=== PATIENT | male | born 1975 | race Caucasian/White ===

== ENCOUNTER 2016-06-16 10:14 | Emergency (ER) | payer OTHER ==
--- NOTE | 2016-06-16 12:11 | DIAGNOSTIC IMAGING REPORT ---
PROCEDURE: CT ABDOMEN/PELVIS W/O CONTRAST INDICATION: Left flank pain, initial encounter TECHNIQUE: Noncontrast axial images were obtained of the entire abdomen and pelvis with sagittal and coronal reformations. COMPARISON: CT abdomen/pelvis 10/07/2012 FINDINGS: ABDOMEN: There are three punctate nonobstructing left renal calculi. No additional urinary calculi. Lung base are clear. Heart size is normal. Liver, gallbladder, pancreas, spleen (splenules and calcified granulomas), adrenal glands and abdominal aorta are normal. Nonspecific bowel gas pattern. PELVIS: Normal appendix. No pelvic mass or inflammatory changes. L5 laminectomy with L5-S1 surgical fusion with pedicle screws and disc spacer. IMPRESSION: 1. Three punctate nonobstructing left renal calculi 2. L5 laminectomy and L5-S1 surgical fusion 3. Results discussed with Dr. Wen All CT scans at this facility use dose modulation, iterative reconstruction, and/or weight-based dosing when appropriate to reduce radiation dose to as low as reasonably achievable.
--- NOTE | 2016-06-16 13:57 | ED NURSING NOTES ---
Clinical Report - Nurses [facility] [address] [place] [address] 06/16/2016 10:16 Patient: BEAR FERNANDEZ TRIAGE Triage time 10:24 Jun 16 2016. Acuity: LEVEL 3. Chief Complaint: ABDOMINAL PAIN. --10:26 Tani Desir R.N. 10:22 06/16/16. BP: 111/66. HR: 74. RR: 18. O2 saturation: 98%. Temp: 98.3 F. --10:26 Tani Desir R.N. Weight: 83.9 kg stated. Height/Length: 72 inches Per Patient. BMI: 25.1. --10:25 Tani Desir R.N. Medications Naproxen Oral. Zoloft Oral (Tablet 50 mg) 1 tablet, daily. --10:25 Tani Desir R.N. Allergies Hydrocodone.(nausea) Tramadol. (seizure) --10:25 Tani Desir R.N. History Arrived by private vehicle. ( Pt reports L flank pain that started multiple says ago pain has progressively gotten worse. Painful urination. hx of kidney stone). Onset. (3 days). SOCIAL HX: Current every day heavy tobacco smoker. History of drug use: marijuana. No alcohol use. --10:26 Tani Desir R.N. Interventions ID and allergy band on patient. To treatment room. --10:26 Tani Desir R.N. PHYSICAL ASSESSMENT ( Last BM yesterday). GENERAL / NEURO / PSYCH: Alert. Oriented X 4. Appears in distress. RESPIRATORY: Respirations not labored. Breath sounds within normal limits. CVS: Capillary refill less than 2 seconds. GI / : The patient has had nausea. Emesis noted. Abdominal tenderness (L flank). Bowel sounds within normal limits. SKIN: Skin is warm and dry. --10:45 Tani Desir R.N. NURSING PROGRESS NOTES 10:33 06/16/2016 Site #1 started via IV in the right antecubital space with an 18g angiocath, with aseptic technique and good blood return; one attempt. Blood drawn: rainbow set. Labeled in the presence of the patient and sent to the lab. Saline lock flushed with saline. --10:43 Tani Desir R.N. 10:43 06/16/2016 Started bag #1 1000 mL IV Fluids IV NS (Saline); bolus of 1000 mL wide open via site #1. Allergies verified and confirmed 5 rights. IV patency established. IV site checked: no pain, redness, or swelling. IV flushed thoroughly pre- and post-medication administration. Completed per protocol. --10:43 Tani Desir R.N. 10:43 06/16/2016 Zofran (Ondansetron HCl) IVP 4 mg given over 2 minute(s) via site #1. Allergies verified and confirmed 5 rights. IV patency established. IV site checked: no pain, redness, or swelling. IV flushed thoroughly pre- and post-medication administration. IVP given by RN. --10:43 Tani Desir R.N. 10:44 06/16/2016 Toradol IVP 30 mg given over 2 minute(s) via site #1. Allergies verified and confirmed 5 rights. IV patency established. IV site checked: no pain, redness, or swelling. IV flushed thoroughly pre- and post-medication administration. IVP given by RN. --10:44 Tani Desir R.N. Pulse oximeter placed on patient. Patient gowned. Two patient identifiers checked. Call light placed in reach. Side rails up x 1. Bed placed in lowest position. --10:46 Tani Desir R.N. 10:59 06/16/16. BP: 85/60. O2 saturation: 100%. --10:59 Tani Desir R.N. ( Pt in bed no symptoms of hypotension). --10:59 Tani Desir R.N. 11:32 06/16/2016 Demerol (Meperidine HCl) IVP 50 mg given over 2 minute(s) via site #1. Allergies verified and confirmed 5 rights. IV patency established. IV site checked: no pain, redness, or swelling. IV flushed thoroughly pre- and post-medication administration. IVP given by RN. --11:32 Tani Desir R.N. 11:40 06/16/16. BP: 98/62. HR: 79. O2 saturation: 99%. --11:40 Tani Desir R.N. ( Pt to CT). --11:40 Tani Desir R.N. ( Pt returned from CT states pain is still same. Given urine sample cup and informed of need for sample). --12:17 Tani Desir R.N. 12:33 06/16/2016 Demerol (Meperidine HCl) IVP 50 mg given over 2 minute(s) via site #1. Allergies verified and confirmed 5 rights. IV patency established. IV site checked: no pain, redness, or swelling. IV flushed thoroughly pre- and post-medication administration. IVP given by RN. --12:34 Tani Desir R.N. 12:46 06/16/16. BP: 103/54. O2 saturation: 99%. --12:47 Tani Desir R.N. ( Pt in bed pain reduced to 3/10). --12:47 Tani Desir R.N. 13:55 06/16/2016 Started 1 gm of Ceftriaxone IVPB in bag #1 50 mL; at 200 mL/hr over 30 minute(s) via site #1; Allergies verified and confirmed 5 rights. IV patency established. IV site checked: no pain, redness, or swelling. IV flushed thoroughly pre- and post-medication administration. Completed per protocol. --13:55 Tani Desir R.N. 14:19 06/16/2016 Ceftriaxone IVPB Discontinued: bag #1 infused upon discharge. Total amount infused: 50 mL. IV patency established. IV site checked: no pain, redness, or swelling. IV flushed thoroughly. --14:19 Tani Desir R.N. DISPOSITION / DISCHARGE 14:00 06/16/16. BP: 107/56. HR: 51. RR: 18. O2 saturation: 100%. Temp: 98.1 F. Pain level now 4/10. --14:00 Tani Desir R.N. Departure time: 1425. Reviewed medication(s) side effects information. The patient was discharged by the physician. He was discharged home and accompanied by strategic communications manager. He left the Emergency Department ambulatory and via private vehicle. Final Inspector And Tester driving. ( Pt ambulated on discharge steady on his feet. Pt requests stronger pain medication, md aware no change in prescription, pt displeased by this. Verbalized understanding of follow up care and medication admin). --14:30 Tani Desir R.N. 18:06 06/16/2016 Site #1 removed upon discharge. Bandage applied. --18:06 Tani Desir R.N. Locked/Released at 06/16/2016 18:06 by Tani Desir R.N.
--- NOTE | 2016-06-16 13:57 | ED ORDER SUMMARY ---
..... Patient: BEAR FERNANDEZ OrderSheet [facility] VisitID: [id number] [address] [place] [address] 40y, M Registration Date/Time: 06/16/2016 ORDER SHEET Weight: 83.9 kg (stated) Allergies: Hydrocodone, Tramadol GENERAL ORDERS: CT Abd/Pel wo Cont Urgent (10:36 06/16/2016 Chencho Tellez) (Ack 10:37 LNations ER Tech1) (13:25 NHouse ER Tech1) CBC w Diff Urgent (10:36 06/16/2016 Chencho Tellez) (Ack 10:37 LNations ER Tech1) (13:25 NHouse ER Tech1) CMP Urgent (10:36 06/16/2016 Chencho Tellez) (Ack 10:37 LNations ER Tech1) (13:25 NHouse ER Tech1) UA-Culture if indicated Urgent (10:36 06/16/2016 Chencho Tellez) (Ack 10:37 LNations ER Tech1) (13:25 NHouse ER Tech1) MEDICATION ORDERS: IV FLUIDS: IV NS : initial bolus none -, then 1000 mL/hr for X1 (NOW) (10:35 06/16/2016 Chencho Tellez) (10:43 Freddy R.N.) Toradol IV 30 mg (NOW) (10:35 06/16/2016 Chencho Tellez) (10:44 DBeyten R.N.) Zofran IV 4 mg (NOW) (10:36 06/16/2016 Chencho Tellez) (10:43 DBeyer R.N.) Demerol IV 50 mg (HIGH ALERT MEDICATION, NOW) (11:28 06/16/2016 Chencho Tellez) (11:32 DBeyten R.N.) Demerol IV 50 mg (HIGH ALERT MEDICATION, NOW) (12:28 06/16/2016 Chencho Tellez) (12:34 DBeyer R.N.) Ceftriaxone IV 1 gm/50mL (NOW) (13:50 06/16/2016 Chencho Tellez) (13:55 DBeyer R.N.) ORDER SHEET NOTES: [Electronically signed by Nathaniel Wen Dr. (14:00 06/16/2016)] [Electronically signed by Tani Desir R.N. (18:06 06/16/2016)] [Electronically locked/signed by Tani Desir R.N. (18:06 06/16/2016)]
--- NOTE | 2016-06-16 13:57 | ED ORDER SUMMARY ---
..... Patient: BEAR FERNANDEZ OrderSheet [facility] VisitID: [id number] [address] [place] [address] 40y, M Registration Date/Time: 06/16/2016 ORDER SHEET Weight: 83.9 kg (stated) Allergies: Hydrocodone, Tramadol GENERAL ORDERS: CT Abd/Pel wo Cont Urgent (10:36 06/16/2016 Chencho Tellez) (Ack 10:37 LNations ER Tech1) (13:25 NHouse ER Tech1) CBC w Diff Urgent (10:36 06/16/2016 Chencho Tellez) (Ack 10:37 LNations ER Tech1) (13:25 NHouse ER Tech1) CMP Urgent (10:36 06/16/2016 Chencho Tellez) (Ack 10:37 LNations ER Tech1) (13:25 NHouse ER Tech1) UA-Culture if indicated Urgent (10:36 06/16/2016 Chencho Tellez) (Ack 10:37 LNations ER Tech1) (13:25 NHouse ER Tech1) MEDICATION ORDERS: IV FLUIDS: IV NS : initial bolus none -, then 1000 mL/hr for X1 (NOW) (10:35 06/16/2016 Chencho Tellez) (10:43 Freddy R.N.) Toradol IV 30 mg (NOW) (10:35 06/16/2016 Chencho Tellez) (10:44 DBeyten R.N.) Zofran IV 4 mg (NOW) (10:36 06/16/2016 Chencho Tellez) (10:43 DBeyer R.N.) Demerol IV 50 mg (HIGH ALERT MEDICATION, NOW) (11:28 06/16/2016 Chencho Tellez) (11:32 DBeyten R.N.) Demerol IV 50 mg (HIGH ALERT MEDICATION, NOW) (12:28 06/16/2016 Chencho Tellez) (12:34 DBeyer R.N.) Ceftriaxone IV 1 gm/50mL (NOW) (13:50 06/16/2016 Chencho Tellez) (13:55 DBeyer R.N.) ORDER SHEET NOTES: [Electronically signed by Nathaniel Wen Dr. (14:00 06/16/2016)] [Electronically signed by Tani Desir R.N. (18:06 06/16/2016)] [Electronically locked/signed by Tani Desir R.N. (18:06 06/16/2016)]
--- NOTE | 2016-06-16 13:57 | ED CLINICAL REPORT ---
Clinical Report - Physicians/Mid Levels [facility] [address] [place] [address] 06/16/2016 10:16 Patient: BEAR FERNANDEZ Time Seen: 10:19; initial patient contact. Arrived- By private vehicle. Historian- patient. HISTORY OF PRESENT ILLNESS Chief Complaint: ABDOMINAL PAIN and FLANK PAIN. At its maximum, severity described as moderate. When seen in the E.D., severity described as moderate. Modifying factors. Not worsened by anything. Not relieved by anything. It is described as cramping and it is described as located in the left lower quadrant and left pelvis and the left flank and radiating to the groin. This started about 2 days ago and is still present (persistent). The patient has had nausea. No loss of appetite, vomiting or diarrhea. Similar symptoms previously: Twice. Recent medical care: Not recently seen/assessed. REVIEW OF SYSTEMS No difficulty with urination, pain with urination or urinary frequency. He has had back pain. All systems otherwise negative, except as recorded above. PAST HISTORY Ureterolithiasis Surgical : Ureteral stenting. SOCIAL HISTORY Current every day smoker. History of drug use: marijuana. No alcohol use. ADDITIONAL NOTES The nursing notes have been reviewed with agreement regarding the chief complaint, PMH and patient medications and allergies. PHYSICAL EXAM Vital Signs: 06/16/2016 10:22 BP: 111/66. HR: 74. RR: 18. O2 saturation: 98%. Temp: 98.3 F. Have been reviewed as normal. Appearance: Alert. Oriented X3. Appears to be in pain. Eyes: Eyes normal inspection. ENT: Dry mucous membranes present. CVS: Normal heart rate and rhythm. Heart sounds normal. Respiratory: No respiratory distress. Breath sounds normal. Abdomen: Soft. Moderate tenderness in the left side of the abdomen with guarding present. No rebound tenderness. Back: Moderate CVA tenderness on the left. Skin: Normal skin color. No rash. Neuro: Oriented X 3. LABS, X-RAYS, AND EKG Abdominal CT: 1. Three punctate nonobstructing left renal calculi 2. L5 laminectomy and L5-S1 surgical fusion. Study type: renal stone evaluation. Abdominal CT performed without contrast. The study was independently viewed by me, interpreted by the radiologist and discussed with the radiologist. Prior studies were not available for comparison. Interpretation time: 12:26. Laboratory Tests: CBC w Diff: (VITA: 06/16/2016 10:30) ( MsgRcvd 06/16/2016 10:41) Final results Test Result Flag Units (Reference) WHITE BLOOD COUNT 10.4 K/uL (4.5-11.5) RED BLOOD COUNT 4.77 M/uL (4.50-5.90) HEMOGLOBIN 15.8 gm/dL (13.5-17.5) HEMATOCRIT 47.7 % (41.0-53.0) MEAN CELL VOLUME 100 fL (80-100) MEAN CORPUSCULAR HGB 33 pg (26-34) MEAN CORPUSCULAR HGB CONC 33 g/dL (31-37) RED CELL DISTRIBUTION WIDTH 13.5 % (11.6-14.8) PLATELET COUNT 254 K/uL (150-400) LYMPH % 25.4 % (25-40) MONO % 4.8 % (3-14) GRANULOCYTE % 69.8 CMP: (VITA: 06/16/2016 10:30) ( MsgRcvd 06/16/2016 11:01) Final results Test Result Flag Units (Reference) GLUCOSE 124 H mg/dL (70-110) BUN 12 mg/dL (7-18) CREATININE 0.9 mg/dL (0.6-1.3) Estimated GFR >60 mL/min Estimated GFR- >60 mL/min Note: Persistent reduction over 3 months in eGFR<60 mL/min/1.73 m2 defines CKD. Patients with eGFR values>=60 mL/min/1.73 m2 may also have CKD if evidence ofpersistent proteinuria. Additional information may be foundat www.kidney.org. SODIUM 145 mmol/L (136-145) POTASSIUM 4.4 mmol/L (3.5-5.1) CHLORIDE 107 mmol/L (98-107) CARBON DIOXIDE 29 mmol/L (21-32) CALCIUM 9.4 mg/dL (8.5-10.1) TOTAL PROTEIN 7.7 g/dL (6.4-8.2) ALBUMIN 4.4 g/dL (3.3-5.0) BILIRUBIN, TOTAL 0.6 mg/dL (0.0-1.0) ALKALINE PHOSPHATASE 99 U/L (46-116) AST (SGOT) 12 L U/L (15-37) ALT (SGPT) 26 U/L (12-78) . PROGRESS AND PROCEDURES Course of Care: 06/16/2016 12:46 BP: 103/54. O2 saturation: 99%. Vital Signs: have been reviewed. Hypotensive. Oxygen saturation normal. Disposition: Discharged home in good and improved condition. Condition: good. CLINICAL IMPRESSION Acute urinary tract infection with cystitis. No pyelonephritis or hematuria. INSTRUCTIONS Do not work tomorrow. Your Current Medications: CONTINUE TAKING THE FOLLOWING MEDICATIONS: Naproxen Oral. Zoloft Oral : Tablet 50 mg, 1 tablet daily. Prescription Medications: Levaquin 500 mg: take 1 tab orally every day for 7 days. No refills. Substitution is permissible. Diclofenac 50 mg tablets: take 1 tablet orally every 6 hours as needed for pain. Dispense fifteen (15). No refill. Follow-up: Follow up with your doctor in about two days. Call for an appointment. Screening today revealed the patient's blood pressure to be in the normal range. (Electronically signed by Nathaniel Wen Dr. 06/16/2016 14:00)
--- NOTE | 2016-06-16 18:06 | ED MED RECONCILIATION SUMMARY ---
Patient: BEAR FERNANDEZ Medication Reconciliation Report [facility] VisitID: [id number] [address] [place] [address] 40y, M Registration Date/Time: 06/16/2016 Weight: 83.9 kg Height/Length: 72 in. BMI: 25.1 ALLERGIES: Hydrocodone, Tramadol The patient's Home Medications are listed below: CONTINUE TAKING THE FOLLOWING MEDICATIONS: Naproxen Oral Zoloft Oral (50 mg) 1 tablet, daily The source(s) of the original Home Medication information: Not obtained. The following Medications were given to the patient in the Emergency Department: IV NS IV Fluids bolus 1000 mL wide open, administered: 06/16/2016 10:43:00 AM Zofran [IVP] IVP 4 mg, administered: 06/16/2016 10:43:00 AM Toradol [IVP] IVP 30 mg, administered: 06/16/2016 10:44:00 AM Demerol [IVP] IVP 50 mg, administered: 06/16/2016 11:32:00 AM Demerol [IVP] IVP 50 mg, administered: 06/16/2016 12:33:00 PM Ceftriaxone [IVPB] IVPB bolus 0, then 1 gm 200 mL/hr, administered: 06/16/2016 1:55:00 PM The following Medications were prescribed to the patient: Levaquin 500 mg: take 1 tab orally every day for 7 days. No refills. Substitution is permissible. -- Nathaniel Wen Dr. Diclofenac 50 mg tablets: take 1 tablet orally every 6 hours as needed for pain. Dispense fifteen (15). No refill. -- Nathaniel Wen Dr.
--- NOTE | 2016-06-16 18:06 | ED MAR SUMMARY ---
..... Medication Administration Record [facility] [address] [place] [address] Patient: BEAR FERNANDEZ Visit ID: [id number] 40y, M Weight: 83.9 kg Height/Length: 72 in BMI: 25.1 ALLERGIES: Hydrocodone, Tramadol Given 10:43 06/16/2016 Tani Desir R.N. Medication Administered: ZOFRAN [IVP] (ONDANSETRON HCL), Dose: 4 mg IVP over 2 minute(s), Site: #1 right AC. Medication Ordered: Zofran IV 4 mg (NOW). Start 10:43 06/16/2016 Tani Desir R.N. Medication Administered: IV NS (SALINE), Dose: IV Fluids, Bolus: 1000 mL wide open, Dispensed: 1000 mL bag, Site: #1 right AC. Medication Ordered: IV NS : initial bolus none -, then 1000 mL/hr for X1 (NOW). Given 10:44 06/16/2016 Tani Desir R.N. Medication Administered: TORADOL [IVP], Dose: 30 mg IVP over 2 minute(s), Site: #1 right AC. Medication Ordered: Toradol IV 30 mg (NOW). Given 11:32 06/16/2016 Tani Desir R.N. Medication Administered: DEMEROL [IVP] (MEPERIDINE HCL), Dose: 50 mg IVP over 2 minute(s), Site: #1 right AC. Medication Ordered: Demerol IV 50 mg (HIGH ALERT MEDICATION, NOW). Given 12:33 06/16/2016 Tani Desir R.NErika Medication Administered: DEMEROL [IVP] (MEPERIDINE HCL), Dose: 50 mg IVP over 2 minute(s), Site: #1 right AC. Medication Ordered: Demerol IV 50 mg (HIGH ALERT MEDICATION, NOW). Start 13:55 06/16/2016 Tani Desir R.N., Stop 14:19 06/16/2016 Tani Desir R.N. Medication Administered: CEFTRIAXONE [IVPB], Dose: 1 gm IVPB over 30 minute(s), Rate: 200 mL/hr, Dispensed: 50 mL bag, Site: #1 right AC. Medication Ordered: Ceftriaxone IV 1 gm/50mL (NOW).
--- NOTE | 2016-06-16 18:06 | ED MAR SUMMARY ---
..... Medication Administration Record [facility] [address] [place] [address] Patient: BEAR FERNANDEZ Visit ID: [id number] 40y, M Weight: 83.9 kg Height/Length: 72 in BMI: 25.1 ALLERGIES: Hydrocodone, Tramadol Given 10:43 06/16/2016 Tani Desir R.N. Medication Administered: ZOFRAN [IVP] (ONDANSETRON HCL), Dose: 4 mg IVP over 2 minute(s), Site: #1 right AC. Medication Ordered: Zofran IV 4 mg (NOW). Start 10:43 06/16/2016 Tani Desir R.N. Medication Administered: IV NS (SALINE), Dose: IV Fluids, Bolus: 1000 mL wide open, Dispensed: 1000 mL bag, Site: #1 right AC. Medication Ordered: IV NS : initial bolus none -, then 1000 mL/hr for X1 (NOW). Given 10:44 06/16/2016 Tani Desir R.N. Medication Administered: TORADOL [IVP], Dose: 30 mg IVP over 2 minute(s), Site: #1 right AC. Medication Ordered: Toradol IV 30 mg (NOW). Given 11:32 06/16/2016 Tani Desir R.N. Medication Administered: DEMEROL [IVP] (MEPERIDINE HCL), Dose: 50 mg IVP over 2 minute(s), Site: #1 right AC. Medication Ordered: Demerol IV 50 mg (HIGH ALERT MEDICATION, NOW). Given 12:33 06/16/2016 Tani Desir R.NErika Medication Administered: DEMEROL [IVP] (MEPERIDINE HCL), Dose: 50 mg IVP over 2 minute(s), Site: #1 right AC. Medication Ordered: Demerol IV 50 mg (HIGH ALERT MEDICATION, NOW). Start 13:55 06/16/2016 Tani Desir R.N., Stop 14:19 06/16/2016 Tani Desir R.N. Medication Administered: CEFTRIAXONE [IVPB], Dose: 1 gm IVPB over 30 minute(s), Rate: 200 mL/hr, Dispensed: 50 mL bag, Site: #1 right AC. Medication Ordered: Ceftriaxone IV 1 gm/50mL (NOW).
--- NOTE | 2016-06-16 18:06 | ED MED RECONCILIATION SUMMARY ---
Patient: BEAR FERNANDEZ Medication Reconciliation Report [facility] VisitID: [id number] [address] [place] [address] 40y, M Registration Date/Time: 06/16/2016 Weight: 83.9 kg Height/Length: 72 in. BMI: 25.1 ALLERGIES: Hydrocodone, Tramadol The patient's Home Medications are listed below: CONTINUE TAKING THE FOLLOWING MEDICATIONS: Naproxen Oral Zoloft Oral (50 mg) 1 tablet, daily The source(s) of the original Home Medication information: Not obtained. The following Medications were given to the patient in the Emergency Department: IV NS IV Fluids bolus 1000 mL wide open, administered: 06/16/2016 10:43:00 AM Zofran [IVP] IVP 4 mg, administered: 06/16/2016 10:43:00 AM Toradol [IVP] IVP 30 mg, administered: 06/16/2016 10:44:00 AM Demerol [IVP] IVP 50 mg, administered: 06/16/2016 11:32:00 AM Demerol [IVP] IVP 50 mg, administered: 06/16/2016 12:33:00 PM Ceftriaxone [IVPB] IVPB bolus 0, then 1 gm 200 mL/hr, administered: 06/16/2016 1:55:00 PM The following Medications were prescribed to the patient: Levaquin 500 mg: take 1 tab orally every day for 7 days. No refills. Substitution is permissible. -- Nathaniel Wen Dr. Diclofenac 50 mg tablets: take 1 tablet orally every 6 hours as needed for pain. Dispense fifteen (15). No refill. -- Nathaniel Wen Dr.
--- NOTE | 2016-06-16 18:06 | ED DISCHARGE INSTRUCTIONS ---
Patient: BEAR FERNANDEZ General Instructions [facility] VisitID: [id number] [place] [address] 40y, M Registration Date/Time: 06/16/2016 Acute urinary tract infection with cystitis. No pyelonephritis or hematuria. INSTRUCTIONS Do not work tomorrow. Your Current Medications: CONTINUE TAKING THE FOLLOWING MEDICATIONS: Naproxen Oral. Zoloft Oral : Tablet 50 mg, 1 tablet daily. Prescription Medications: Levaquin 500 mg: take 1 tab orally every day for 7 days. No refills. Substitution is permissible. Diclofenac 50 mg tablets: take 1 tablet orally every 6 hours as needed for pain. Dispense fifteen (15). No refill. Follow-up: Follow up with your doctor in about two days. Call for an appointment. Screening today revealed the patient's blood pressure to be in the normal range. ADDITIONAL INFORMATION Bladder Infection,Male (Adult) A bladder infection ("cystitis" or "UTI") usually causes a constant urge to urinate, and a burning when passing urine. Urine may be cloudy, smelly or dark. There may be also be pain in the lower abdomen. Cystitis in males is not common. It may be caused by a partial blockage in the urinary system that keeps the bladder from emptying completely. This is most often related to an enlarged prostate gland. Home Care: Drink lots of fluids (at least 6-8 glasses a day). This will flush the bacteria out of your bladder. Avoid sexual intercourse until your symptoms are gone. Avoid caffeine, alcohol, and spicy foods. They could irritate the bladder. A bladder infection is treated with antibiotics. You may also be given Pyridium (generic - phenazopyridine) to reduce burning with urination. This will cause urine to become a bright orange color, which can stain clothing. Follow Up with your doctor or this facility if ALL symptoms have not cleared within five days. It is important to keep your follow up appointment to discuss with your doctor the need for further tests of the urinary tract. Get Prompt Medical Attention if any of the following occur: Fever of 100.4F (38C) or higher, or as directed by your healthcare provider No improvement by the third day of treatment Increasing back or abdominal pain Repeated vomiting; unable to keep medicine down Weakness, dizziness or fainting Levofloxacin Oral tablet What is this medicine? LEVOFLOXACIN (reba iglesias MARGARET dottie ann) is a quinolone antibiotic. It is used to treat certain kinds of bacterial infections. It will not work for colds, flu, or other viral infections. How should I use this medicine? Take this medicine by mouth with a full glass of water. Follow the directions on the prescription label. This medicine can be taken with or without food. Take your medicine at regular intervals. Do not take your medicine more often than directed. Do not skip doses or stop your medicine early even if you feel better. Do not stop taking except on your doctor's advice. A special MedGuide will be given to you by the pharmacist with each prescription and refill. Be sure to read this information carefully each time. Talk to your horse show manager regarding the use of this medicine in children. While this drug may be prescribed for children as young as 6 months for selected conditions, precautions do apply. What side effects may I notice from receiving this medicine? Side effects that you should report to your doctor or health floor care specialist as soon as possible: -allergic reactions like skin rash or hives, swelling of the face, lips, or tongue -changes in vision -confusion, nightmares or hallucinations -difficulty breathing -irregular heartbeat, chest pain -joint, muscle or tendon pain -pain or difficulty passing urine -persistent headache with or without blurred vision -redness, blistering, peeling or loosening of the skin, including inside the mouth -seizures -unusual pain, numbness, tingling, or weakness -vaginal irritation, discharge Side effects that usually do not require medical attention (report to your doctor or health floor care specialist if they continue or are bothersome): -diarrhea -dry mouth -headache -stomach upset, nausea -trouble sleeping What may interact with this medicine? Do not take this medicine with any of the following medications: - arsenic trioxide - chloroquine - droperidol - medicines for irregular heart rhythm like amiodarone, disopyramide, dofetilide, flecainide, quinidine, procainamide, sotalol - some medicines for depression or mental problems like phenothiazines, pimozide, and ziprasidone This medicine may also interact with the following medications: - amoxapine -antacids - cisapride - dairy products - didanosine (ddI) buffered tablets or powder - haloperidol - multivitamins -NSAIDS, medicines for pain and inflammation, like ibuprofen or naproxen - retinoid products like tretinoin or isotretinoin - risperidone - some other antibiotics like clarithromycin or erythromycin - sucralfate - theophylline - warfarin What if I miss a dose? If you miss a dose, take it as soon as you remember. If it is almost time for your next dose, take only that dose. Do not take double or extra doses. Where should I keep my medicine? Keep out of the reach of children. Store at room temperature between 15 and 30 degrees C (59 and 86 degrees F). Keep in a tightly closed container. Throw away any unused medicine after the expiration date. What should I tell my health care provider before I take this medicine? They need to know if you have any of these conditions: cerebral disease irregular heartbeat kidney disease seizure disorder an unusual or allergic reaction to levofloxacin, other antibiotics or medicines, foods, dyes, or preservatives or trying to get breast-feeding What should I watch for while using this medicine? Tell your doctor or health floor care specialist if your symptoms do not improve or if they get worse. Drink several glasses of water a day and cut down on drinks that contain caffeine. You must not get dehydrated while taking this medicine. You may get drowsy or dizzy. Do not drive, use machinery, or do anything that needs mental alertness until you know how this medicine affects you. Do not sit or stand up quickly, especially if you are an older patient. This reduces the risk of dizzy or fainting spells. This medicine can make you more sensitive to the sun. Keep out of the sun. If you cannot avoid being in the sun, wear protective clothing and use a sunscreen. Do not use sun lamps or tanning beds/booths. Contact your doctor if you get a sunburn. If you are a diabetic monitor your blood glucose carefully. If you get an unusual reading stop taking this medicine and call your doctor right away. Do not treat diarrhea with [id number] products. Contact your doctor if you have diarrhea that lasts more than 2 days or if the diarrhea is severe and watery. Avoid antacids, calcium, iron, and zinc products for 2 hours before and 2 hours after taking a dose of this medicine. You have been given the following additional information: Bladder Infection, Male (Adult) Levofloxacin Oral tablet Do not work tomorrow. (Electronically signed by Nathaniel Wen Dr. 06/16/2016 14:00)
--- NOTE | 2016-06-16 18:06 | ED DISCHARGE INSTRUCTIONS ---
Patient: BEAR FERNANDEZ General Instructions [facility] VisitID: [id number] [place] [address] 40y, M Registration Date/Time: 06/16/2016 Acute urinary tract infection with cystitis. No pyelonephritis or hematuria. INSTRUCTIONS Do not work tomorrow. Your Current Medications: CONTINUE TAKING THE FOLLOWING MEDICATIONS: Naproxen Oral. Zoloft Oral : Tablet 50 mg, 1 tablet daily. Prescription Medications: Levaquin 500 mg: take 1 tab orally every day for 7 days. No refills. Substitution is permissible. Diclofenac 50 mg tablets: take 1 tablet orally every 6 hours as needed for pain. Dispense fifteen (15). No refill. Follow-up: Follow up with your doctor in about two days. Call for an appointment. Screening today revealed the patient's blood pressure to be in the normal range. ADDITIONAL INFORMATION Bladder Infection,Male (Adult) A bladder infection ("cystitis" or "UTI") usually causes a constant urge to urinate, and a burning when passing urine. Urine may be cloudy, smelly or dark. There may be also be pain in the lower abdomen. Cystitis in males is not common. It may be caused by a partial blockage in the urinary system that keeps the bladder from emptying completely. This is most often related to an enlarged prostate gland. Home Care: Drink lots of fluids (at least 6-8 glasses a day). This will flush the bacteria out of your bladder. Avoid sexual intercourse until your symptoms are gone. Avoid caffeine, alcohol, and spicy foods. They could irritate the bladder. A bladder infection is treated with antibiotics. You may also be given Pyridium (generic - phenazopyridine) to reduce burning with urination. This will cause urine to become a bright orange color, which can stain clothing. Follow Up with your doctor or this facility if ALL symptoms have not cleared within five days. It is important to keep your follow up appointment to discuss with your doctor the need for further tests of the urinary tract. Get Prompt Medical Attention if any of the following occur: Fever of 100.4F (38C) or higher, or as directed by your healthcare provider No improvement by the third day of treatment Increasing back or abdominal pain Repeated vomiting; unable to keep medicine down Weakness, dizziness or fainting Levofloxacin Oral tablet What is this medicine? LEVOFLOXACIN (reba iglesias MARGARET dottie ann) is a quinolone antibiotic. It is used to treat certain kinds of bacterial infections. It will not work for colds, flu, or other viral infections. How should I use this medicine? Take this medicine by mouth with a full glass of water. Follow the directions on the prescription label. This medicine can be taken with or without food. Take your medicine at regular intervals. Do not take your medicine more often than directed. Do not skip doses or stop your medicine early even if you feel better. Do not stop taking except on your doctor's advice. A special MedGuide will be given to you by the pharmacist with each prescription and refill. Be sure to read this information carefully each time. Talk to your theatrical dresser regarding the use of this medicine in children. While this drug may be prescribed for children as young as 6 months for selected conditions, precautions do apply. What side effects may I notice from receiving this medicine? Side effects that you should report to your doctor or health career services officer as soon as possible: -allergic reactions like skin rash or hives, swelling of the face, lips, or tongue -changes in vision -confusion, nightmares or hallucinations -difficulty breathing -irregular heartbeat, chest pain -joint, muscle or tendon pain -pain or difficulty passing urine -persistent headache with or without blurred vision -redness, blistering, peeling or loosening of the skin, including inside the mouth -seizures -unusual pain, numbness, tingling, or weakness -vaginal irritation, discharge Side effects that usually do not require medical attention (report to your doctor or health career services officer if they continue or are bothersome): -diarrhea -dry mouth -headache -stomach upset, nausea -trouble sleeping What may interact with this medicine? Do not take this medicine with any of the following medications: - arsenic trioxide - chloroquine - droperidol - medicines for irregular heart rhythm like amiodarone, disopyramide, dofetilide, flecainide, quinidine, procainamide, sotalol - some medicines for depression or mental problems like phenothiazines, pimozide, and ziprasidone This medicine may also interact with the following medications: - amoxapine -antacids - cisapride - dairy products - didanosine (ddI) buffered tablets or powder - haloperidol - multivitamins -NSAIDS, medicines for pain and inflammation, like ibuprofen or naproxen - retinoid products like tretinoin or isotretinoin - risperidone - some other antibiotics like clarithromycin or erythromycin - sucralfate - theophylline - warfarin What if I miss a dose? If you miss a dose, take it as soon as you remember. If it is almost time for your next dose, take only that dose. Do not take double or extra doses. Where should I keep my medicine? Keep out of the reach of children. Store at room temperature between 15 and 30 degrees C (59 and 86 degrees F). Keep in a tightly closed container. Throw away any unused medicine after the expiration date. What should I tell my health care provider before I take this medicine? They need to know if you have any of these conditions: cerebral disease irregular heartbeat kidney disease seizure disorder an unusual or allergic reaction to levofloxacin, other antibiotics or medicines, foods, dyes, or preservatives or trying to get breast-feeding What should I watch for while using this medicine? Tell your doctor or health career services officer if your symptoms do not improve or if they get worse. Drink several glasses of water a day and cut down on drinks that contain caffeine. You must not get dehydrated while taking this medicine. You may get drowsy or dizzy. Do not drive, use machinery, or do anything that needs mental alertness until you know how this medicine affects you. Do not sit or stand up quickly, especially if you are an older patient. This reduces the risk of dizzy or fainting spells. This medicine can make you more sensitive to the sun. Keep out of the sun. If you cannot avoid being in the sun, wear protective clothing and use a sunscreen. Do not use sun lamps or tanning beds/booths. Contact your doctor if you get a sunburn. If you are a diabetic monitor your blood glucose carefully. If you get an unusual reading stop taking this medicine and call your doctor right away. Do not treat diarrhea with [id number] products. Contact your doctor if you have diarrhea that lasts more than 2 days or if the diarrhea is severe and watery. Avoid antacids, calcium, iron, and zinc products for 2 hours before and 2 hours after taking a dose of this medicine. You have been given the following additional information: Bladder Infection, Male (Adult) Levofloxacin Oral tablet Do not work tomorrow. (Electronically signed by Nathaniel Wen Dr. 06/16/2016 14:00)
== END 2016-06-16 14:20 | disposition home or self-care (01) ==
LOC: ED SRH 10:14
DX: N30.00 Acute cystitis without hematuria (principal); F17.210 Nicotine dependence, cigarettes, uncomplicated; Z79.899 Other long term (current) drug therapy
CPT/HCPCS: 90004; 90100; 90469; 95059